=== PATIENT | male | born 1945 | race Caucasian/White ===

== ENCOUNTER 2018-04-04 22:08 | Emergency (ER) | payer MEDICARE ==
[~2018-04-04] VITALS: Ht 182.9 cm; Wt 101.0 kg
[2018-04-04 22:21] VITALS: BP 119/74
== END 2018-04-04 23:10 | disposition left against medical advice (07) ==
LOC: ER 22:08
DX: Z53.21 Procedure and treatment not carried out due to patient leaving prior to being seen by health care provider (principal)
CPT/HCPCS: 82962